=== PATIENT | male | born 1985 | race Two or more races ===

== ENCOUNTER 2024-12-21 13:22 | Outpatient (CLI) | payer OTHER | END 2024-12-21 13:24 | disposition home or self-care (01) | LOC: SONOGRAMA 13:22 | PROVIDERS: ATTEND Pathology Anatomic Pathology | DX: R59.0 Localized enlarged lymph nodes (principal); C73 Malignant neoplasm of thyroid gland ==

== ENCOUNTER 2024-12-23 09:15 | Inpatient (IN) | payer OTHER ==
[~2024-12-23] VITALS: Ht 190.5 cm; Wt 86.2 kg
[2024-12-23 10:56] LABS: PH,URINE 6.5 (5.0-8.0); URINE APPEARANCE Clear; URINE BILIRRUBIN Negative (NEGATIVE); URINE BLOOD Small; URINE COLOR Dark Yellow; URINE GLUCOSE Negative (NEGATIVE); URINE KETONE Negative (NEGATIVE); URINE LEUKOCYTE Trace; URINE NITRATE Negative; URINE PROTEIN Negative (NEGATIVE)
[2024-12-23 11:01] LABS: URINE BACTERIA 133.4 uL (0.0-1933); URINE EPITHELIAL CELLS 15.8 uL (0.0-38.8); URINE RBC 60.3 uL (0.0-20.8); URINE WBC 5.2 uL (0.0-23.2)
[2024-12-23 11:10] LABS: BASO % 0.6 % (0.1-1.2); EOS % 5.8 % (0.7-7.0); HEMATOCRIT 41.4 % (40.1-51.0); HEMOGLOBIN 13.2 g/dL (13.7-17.5); LYMPH # 1.46 (1.18-3.74); LYMPH % 21.2 % (19.3-53.1); MEAN CORPUSCULAR HEMOGLOBIN 28.8 pg (25.6-32.2); MONO # 0.87 (0.24-0.82); NEUT # 4.12 (1.56-6.13); NEUT % 59.7 % (34.0-71.1); PLATELET COUNT 150 K/uL (163-369); RED BLOOD COUNT 4.59 M/uL (4.63-6.08); RED CELL DISTRIBUTION WIDTH 13.9 % (11.6-14.4)
[2024-12-23 11:12] LABS: URINE CAST 0.14 uL (0.0-1.40)
[2024-12-23 11:20] LABS: MONO % 12.6 % (4.7-12.5)
[2024-12-23 11:44] LABS: INR 1.02; PARTIAL THROMBOPLASTIN TIME 26.8 SECONDS (22.0-34.0); PROTHROMBIN TIME 11.1 SECONDS (9.0-11.5)
[2024-12-23] MEDS ORDERED: METOCLOPRAMIDE10 MG PO (11:50)
[2024-12-23] MEDS ORDERED: LEVOXYL100 MCG PO (11:50)
[2024-12-23] MEDS ORDERED: PROTONIX20 MG (11:51)
[2024-12-23] MEDS ORDERED: PEPCID AC20 MG (11:51)
[2024-12-23 11:54] VITALS: BP 101/66
[2024-12-23 11:58] LABS: ALBUMIN 3.5 gm/dL (3.4-5.0); BILIRUBIN TOTAL 1.55 mg/dL (0.3-1.2); CALCIUM 8.6 mg/dL (8.5-10.1); CREATININE SERUM 0.76 mg/dL (0.70-1.30); GFR 114.18; GLOBULINA 3.1 G/DL (2.4-3.5); POTASSIUM 4.09 mEq/L (3.5-5.1); TOTAL PROTEIN 6.6 gm/dL (6.4-8.2)
[2024-12-28] MEDS ORDERED: DEXAMETHASONE SODIUM PHOSPHATE 4 MG/ML VIAL IV ONE (08:15)
[2024-12-28] MEDS ORDERED: ONDANSETRON HCL 2 MG/ML VIAL IV PRN (09:45)
[2024-12-28 12:29] VITALS: BP 102/67; O2SAT 100
[2024-12-28] MEDS ORDERED: GABAPENTIN 100 MG CAPSULE PO SCH (17:00)
[2024-12-28] MEDS ORDERED: TRAMADOL HCL 50 MG TABLET PO SCH (17:00)
[2024-12-28] MEDS ORDERED: LIDOCAINE HCL 60 ML,MAG HYDROX/ALUMINUM HYD/SIMETH 60 ML,DIPHENHYDRAMINE HCL 150 MG MM SCH (17:00)
[2024-12-28] MEDS ORDERED: ACETAMINOPHEN 500 MG GEL..CAP PO SCH (17:00)
[2024-12-28] MEDS ORDERED: CLONAZEPAM 0.5 MG TABLET PO SCH (17:00)
[2024-12-28] MEDS ORDERED: CYCLOBENZAPRINE HCL 5 MG TABLET PO SCH (17:00)
[2024-12-28] MEDS ORDERED: PANTOPRAZOLE SODIUM 40 MG/VIAL VIAL IV PUSH SCH (21:00)
[2024-12-29 00:02] VITALS: BP 95/62; O2SAT 94
[2024-12-29 08:00] VITALS: BP 100/67; O2SAT 99
[2024-12-29] MEDS ORDERED: CLONAZEPAM 0.5 MG TABLET PO SCH (09:00)
== END 2024-12-29 13:29 | disposition home or self-care (01) | DRG 627 ==
LOC: O/R 12-28 05:10 → SURH 12-28 05:10 → SURG 12-28 09:15 → SURH 12-28 10:45 → SURG 12-28 15:00 → SURH 12-29 13:29
PROVIDERS: Otolaryngology; ADMIT Surgery; ATTEND Surgery
PROC: 0GBH0ZZ Excision of Right Thyroid Gland Lobe, Open Approach (ICD-10-PCS; principal; 2024-12-28 15:00)
DX: C73 Malignant neoplasm of thyroid gland (principal); J38.01 Paralysis of vocal cords and larynx, unilateral

== ENCOUNTER 2025-05-13 10:01 | Outpatient (CLI) | payer OTHER ==
[~2025-05-13 10:01] MED LIST: LEVOXYL100 MCG PO; METOCLOPRAMIDE10 MG PO; PEPCID AC20 MG; PROTONIX20 MG
== END 2025-05-13 10:02 | disposition home or self-care (01) ==
LOC: SONOGRAMA 10:01
PROVIDERS: ATTEND Pathology Anatomic Pathology & Clinical Pathology
DX: R59.0 Localized enlarged lymph nodes (principal); C73 Malignant neoplasm of thyroid gland